=== PATIENT | female | born 1990 | race Caucasian/White ===

== ENCOUNTER 2022-02-26 20:55 | Inpatient (IN) ==
[2022-02-26] MEDS ORDERED: miSOPROStoL 200 MCG TABLET RECTAL PRN (21:06)
[2022-02-26] MEDS ORDERED: METHYLERGONOVINE 0.2 MG/1 ML AMP IM PRN (21:06)
[2022-02-26] MEDS ORDERED: BUTORPHANOL 1 MG/ML VIAL IV PRN (21:06)
[2022-02-26] MEDS ORDERED: LACTATED RINGERS 250 ML IV ONE (21:06)
[2022-02-26] MEDS ORDERED: LACTATED RINGERS 500 ML IV PRN (21:06)
[2022-02-26] MEDS ORDERED: TRANEXAMIC ACID 1,000 MG in SODIUM CHLORIDE 0.9% 100 ML IV PRN (21:06)
[2022-02-26] MEDS ORDERED: CARBOPROST TROMETHAMINE 250 MCG/ML AMP IM PRN (21:06)
[2022-02-26] MEDS ORDERED: ONDANSETRON 4 MG/2 ML VIAL IV PRN (21:06)
[2022-02-26] MEDS ORDERED: OXYTOCIN/LR 20 UNIT/1,000 ML BAG IV ONE (21:06)
[2022-02-26] MEDS ORDERED: BUTORPHANOL 2 MG/ML VIAL IV PRN (21:06)
[2022-02-26 21:33] LABS: Basophils # 0.1 10*3/uL (0.0-0.2); Basophils % 0.5 % (0.0-0.8); Eosinophils # 0.1 10*3/uL (0.0-0.87); Hematocrit 36.4 VOL% (35.7-47.0); Hemoglobin 12.4 GM/DL (12.0-16.0); Immature Granulocytes % 2.5 %; Immature Granulocytes Absolute 0.29 #; Lymphocytes # 2.5 10*3/uL (1.4-4.0); Lymphocytes % 21.3 % (21.3-54.2); Mean Corpuscular HGB Conc 34.1 GM/DL (32-36); Mean Corpuscular Volume 89.9 FL (87-102); Mean Platelet Volume 10.9 FL (9.6-12.0); Monocytes % 8.1 % (1.7-12.7); Neutrophils % 66.6 % (38.7-73.9); Platelet Count 199 T/CUMM (130-400); Red Blood Count 4.05 MC/CUMM (3.8-5.5); Red Cell Distribution Width 13.9 % (9.3-17.3); White Blood Count 11.8 T/CUMM (4-12)
[2022-02-26] MEDS: LACTATED RINGERS 1,000 ML IV SCH (21:40)
[2022-02-27] MEDS: LACTATED RINGERS 1,000 ML IV SCH ×2 (04:49→08:06)
[2022-02-27] MEDS: ACETAMINOPHEN 325 MG TABLET PO PRN ×2 (05:02→12:50)
[2022-02-27 06:27] LABS: Amorphous Crystals,Urine Few /HPF (Few); Bilirubin,Urine Negative (Negative); Blood, Urine Negative (Negative); Glucose,Urine (UA) Negative (Negative); Ketones,Urine Negative (Negative); Mucus,Urine Occasional /LPF (Occasional); Nitrite,Urine Negative (Negative); Protein,Urine Negative (Negative); RBC,Urine 1 /HPF (0-4); Squamous Epithelial Cell,Urine Few /HPF (0-10); Urine Appearance Clear (Clear); Urine Color Yellow (Yellow); Urine Specific Gravity 1.025 (1.001-1.035); Urine Urobilinogen 0.2 eU/dL (<2.0); Urine pH 6.5 (4.5-8.0)
[2022-02-27 06:38] LABS: Barbiturates Screen,Urine Negative (Negative); Benzodiazepines Screen,Urine Negative (Negative); Cannabinoid Screen,Urine Negative (Negative); Opiate Screen,Urine Negative (Negative); Phencyclidine Screen,Urine Negative (Negative)
[2022-02-27] MEDS ORDERED: CITRIC ACID/SODIUM CITRATE 30 ML UDCUP PO ONE (07:17)
[2022-02-27] MEDS ORDERED: FAMOTIDINE 20 MG/2 ML VIAL IV ONE (07:17)
[2022-02-27] MEDS ORDERED: NALOXONE 0.4 MG/ML VIAL IV PRN (07:17)
[2022-02-27] MEDS ORDERED: ePHEDrine 50 MG/ML VIAL IV PRN (07:17)
[2022-02-27] MEDS ORDERED: diphenhydrAMINE 50 MG/1 ML VIAL IV PRN (07:17)
[2022-02-27] MEDS ORDERED: LACTATED RINGERS 1,000 ML IV ONE (07:17)
[2022-02-27] MEDS ORDERED: fentaNYL 2 MCG/ROPIV 0.2% EPID 100 ML EPIDURAL SCH (07:30)
[2022-02-27] MEDS ORDERED: OXYTOCIN/LR 20 UNIT/1,000 ML BAG IV SCH (08:00)
[2022-02-27] MEDS ORDERED: miSOPROStoL 200 MCG TABLET ONE (09:29)
[2022-02-27] MEDS ORDERED: CARBOPROST TROMETHAMINE 250 MCG/ML AMP IM ONE (09:30)
[2022-02-27] MEDS ORDERED: METHYLERGONOVINE 0.2 MG/1 ML AMP ONE (09:30)
[2022-02-27 09:32] LABS: Amorphous Crystals,Urine Moderate /HPF (Few); Bilirubin,Urine Negative (Negative); Glucose,Urine (UA) Negative (Negative); Ketones,Urine Negative (Negative); Mucus,Urine Occasional /LPF (Occasional); Nitrite,Urine Negative (Negative); Protein,Urine Negative (Negative); RBC,Urine 2 /HPF (0-4); Urine Appearance Clear (Clear); Urine Color Yellow (Yellow); Urine pH 8.5 (4.5-8.0)
[2022-02-27 09:33] LABS: Blood, Urine Negative (Negative); Urine Urobilinogen 0.2 eU/dL (<2.0)
[2022-02-27 10:09] LABS: Cord Venous Blood HCO3 25.1 MMOL/L; Cord Venous Blood PO2 23.5
[2022-02-27] MEDS ORDERED: IBUPROFEN 800 MG TABLET PO ONE (11:27)
[2022-02-27] MEDS ORDERED: MEASLES/MUMPS/RUBELLA VACCINE 0.5 ML VIAL SUBCUT ONE (12:24)
[2022-02-27] MEDS ORDERED: BISACODYL 10 MG SUPP RECTAL PRN ×2 (12:24→13:49)
[2022-02-27] MEDS ORDERED: IBUPROFEN 800 MG TABLET PO PRN ×2 (12:24→13:49)
[2022-02-27] MEDS ORDERED: OXYTOCIN/LR 20 UNIT/1,000 ML BAG IV ONE ×2 (12:24→13:49)
[2022-02-27] MEDS ORDERED: BENZOCAINE 20%/MENTHOL 0.5% SPRAY 56 GM CAN TOP PRN ×2 (12:24→13:49)
[2022-02-27] MEDS ORDERED: LANOLIN 50% CREAM 0.3 OZ TUBE TOP PRN ×2 (12:24→13:49)
[2022-02-27] MEDS ORDERED: HYDROCORTISONE 2.5% RECTAL CREAM 30 GM TUBE TOP PRN ×2 (12:24→13:49)
[2022-02-27] MEDS ORDERED: WITCH HAZEL PADS 100/JAR TOP PRN (12:24)
[2022-02-27] MEDS ORDERED: DIPH/TET/ACEL PERT BOOSTER VACCINE 0.5 ML VIAL IM ONE (12:24)
[2022-02-27] MEDS ORDERED: oxyCODONE/ACETAMINOPHEN 5-325 MG TABLET PO PRN ×3 (13:00→13:49)
[2022-02-27] MEDS ORDERED: RHO(D) IMMUNE GLOBULIN 300 MCG SYRINGE IM ONE (13:49)
[2022-02-27] MEDS ORDERED: ONDANSETRON 4 MG/2 ML VIAL IV PRN (13:49)
[2022-02-27] MEDS ORDERED: ACETAMINOPHEN 325 MG TABLET PO PRN (13:49)
[2022-02-27] MEDS: oxyCODONE/ACETAMINOPHEN 5-325 MG TABLET PO PRN (16:29)
[2022-02-27] MEDS: DOCUSATE SODIUM 100 MG CAPSULE PO SCH (20:46)
[2022-02-27] MEDS ORDERED: DOCUSATE SODIUM 100 MG CAPSULE PO SCH (21:00)
[2022-02-28] MEDS: oxyCODONE/ACETAMINOPHEN 5-325 MG TABLET PO PRN ×3 (02:34→17:48)
[2022-02-28 05:04] LABS: Basophils # 0.1 10*3/uL (0.0-0.2); Basophils % 0.5 % (0.0-0.8); Eosinophils # 0.2 10*3/uL (0.0-0.87); Eosinophils % 1.7 % (0.00-10.9); Immature Granulocytes % 1.8 %; Immature Granulocytes Absolute 0.23 #; Lymphocytes # 2.3 10*3/uL (1.4-4.0); Lymphocytes % 18.3 % (21.3-54.2); Mean Corpuscular HGB Conc 33.3 GM/DL (32-36); Mean Corpuscular Volume 90.4 FL (87-102); Mean Platelet Volume 10.8 FL (9.6-12.0); Monocytes # 1.1 10*3/uL (0.11-0.8); Monocytes % 8.9 % (1.7-12.7); Neutrophils % 68.8 % (38.7-73.9); Platelet Count 192 T/CUMM (130-400); Red Blood Count 3.65 MC/CUMM (3.8-5.5); Red Cell Distribution Width 14.1 % (9.3-17.3); White Blood Count 12.5 T/CUMM (4-12)
[2022-02-28] MEDS: DOCUSATE SODIUM 100 MG CAPSULE PO SCH ×2 (09:25→21:32)
[2022-02-28] MEDS: MULTIVITAMIN (PRENATAL) TABLET PO SCH (09:26)
[2022-03-01 07:20] VITALS: BP 108/58
[2022-03-01] MEDS: DOCUSATE SODIUM 100 MG CAPSULE PO SCH (09:25)
[2022-03-01] MEDS: MULTIVITAMIN (PRENATAL) TABLET PO SCH (09:26)
== END 2022-03-01 14:00 | disposition home or self-care (01) | DRG 560 ==
LOC: N.LDOUT 20:55 → N.LD 20:59 → N.OB 02-27 12:58
PROVIDERS: ADMIT Specialist; ATTEND Specialist